=== PATIENT | male | born 1950 | race Caucasian/White ===

== ENCOUNTER 2016-10-11 09:08 | Inpatient (IN) | payer MEDICARE, MEDICAID ==
[~2016-10-11] VITALS: Ht 167.6 cm; Wt 70.3 kg
--- NOTE | 2016-10-11 09:19 | NUR ---
PT IS IN ROOM #2A. DR WELSH EVALUATED THE PT.
[2016-10-11] MEDS ORDERED: ASPIRIN PO (09:23)
[2016-10-11] MEDS ORDERED: FLUT16SP BNOSTRILS (09:23)
[2016-10-11] MEDS ORDERED: LORA10TA50 PO (09:23)
[2016-10-11] MEDS ORDERED: AMLO5TAB2 PO (09:23)
[2016-10-11] MEDS ORDERED: ALBU8HFA4 INH (09:23)
[2016-10-11] MEDS ORDERED: TRAM100T23 PO (09:23)
[2016-10-11] MEDS ORDERED: TAMS0.4C34 PO (09:23)
[2016-10-11] MEDS ORDERED: PANT40TA2 PO (09:23)
[2016-10-11] MEDS ORDERED: CHOL100043 PO (09:23)
[2016-10-11] MEDS ORDERED: ACET-2605 PO (09:23)
[2016-10-11] MEDS ORDERED: GEMF600T3 PO (09:23)
[2016-10-11] MEDS ORDERED: FERROUS SULFATE PO (09:23)
[2016-10-11] MEDS ORDERED: DOCU100T2 PO (09:23)
[2016-10-11] MEDS ORDERED: MELO-264 PO (09:23)
[2016-10-11] MEDS ORDERED: BENA10TA2 PO (09:23)
[2016-10-11] MEDS ORDERED: CYCL5TAB PO (09:23)
[2016-10-11] MEDS ORDERED: CALCIUM CARBONATE PO (09:23)
[2016-10-11 09:57] LABS: BASOPHILS # (AUTO) 0.1 K/uL (0.0-0.2); BASOPHILS % (AUTO) 1.4 % (0.0-2.0); EOSINOPHILS # (AUTO) 0.2 K/uL (0.0-0.7); EOSINOPHILS % (AUTO) 2.9 % (0.0-7.0); HEMATOCRIT 44.8 % (40.0-50.0); HEMOGLOBIN 14.4 g/dL (14.0-18.0); LYMPHOCYTES # (AUTO) 2.2 K/uL (0.8-4.8); LYMPHOCYTES % (AUTO) 33.9 % (20.5-51.5); MEAN CORPUSCULAR HEMOGLOBIN 28.9 uug (27.0-31.0); MEAN CORPUSCULAR HGB CONC 32 g/dL (32.0-37.0); MEAN CORPUSCULAR VOLUME 89.8 fL (82.0-92.0); MONOCYTES # (AUTO) 0.6 K/uL (0.1-1.30); MONOCYTES % (AUTO) 9.4 % (0.0-11.0); NEUTROPHILS # (AUTO) 3.3 K/uL (1.8-8.9); NEUTROPHILS % (AUTO) 52.4 % (38.5-71.5); PLATELET COUNT (AUTO) 189 K/uL (150-450); RED BLOOD CELL COUNT(AUTO) 4.99 MIL/uL (4.70-6.10); RED CELL DISTRIBUTION WIDTH 13.1 % (11.5-14.5); WHITE BLOOD COUNT (AUTO) 6.4 K/uL (4.0-11.2)
[2016-10-11 10:00] LABS: POTASSIUM 4.7 mmol/L (3.5-5.1)
[2016-10-11 10:02] LABS: CREATININE 2.1 mg/dL (0.6-1.3)
[2016-10-11 10:05] LABS: ALBUMIN 3.4 g/dL (3.4-5.0); BILIRUBIN,TOTAL 0.3 mg/dL (0.2-1.0); TOTAL PROTEIN, SERUM 6.9 g/dL (6.4-8.2)
[2016-10-11] MEDS ORDERED: PANTOPRAZOLE SODIUM 40 MG VIAL IV ONE (10:15)
[2016-10-11] MEDS ORDERED: diphenhydrAMINE 50 MG/1 ML VIAL IV ONE (10:15)
[2016-10-11] MEDS ORDERED: methylPREDNISolone SOD SUCC 125 MG/2 ML VIAL IV ONE (10:15)
[2016-10-11] MEDS ORDERED: PANTOPRAZOLE SODIUM 40 MG VIAL ONE (10:29)
[2016-10-11] MEDS ORDERED: methylPREDNISolone SOD SUCC 125 MG/2 ML VIAL ONE (10:29)
[2016-10-11] MEDS ORDERED: diphenhydrAMINE 50 MG/1 ML VIAL ONE (10:29)
[2016-10-11 11:14] LABS: *BILIRUBIN,URIN NEGATIVE (NEGATIVE); *BLOOD, URINE Trace-intact (NEGATIVE); *CLARITY,URINE CLEAR (CLEAR); *COLOR,URINE YELLOW (YELLOW); *KETONES,URINE NEGATIVE (NEGATIVE); *PROTEIN,URINE 1+ (NEGATIVE); *UROBILINOGEN,URINE 0.2 E.U./dl (NORMAL); LEUKOCYTE ESTERASE ,URINE NEGATIVE (NEGATIVE); NITRITE, URINE NEGATIVE (NEGATIVE); UGLUCOSE NEGATIVE (NEGATIVE)
[2016-10-11 11:32] LABS: BACTERIA,URINE FEW /HPF (NONE SEEN); RBC,URINE 0-3 /HPF (0-3); SQUAMOUS EPITHELIAL CELL,UR FEW /HPF (NONE SEEN); WBC,URINE 0-3 /HPF (0-3)
--- NOTE | 2016-10-11 12:51 | NUR ---
REPORT WAS GIVEN TO W[employer] B[employer]LE INSPECTOR. PT WAS TRANSFERED TO TELEMETRY ROOM #228.
[2016-10-11 13:19] LABS: CREATINE KINASE MB 3.1 ng/mL (0-5.0)
--- NOTE | 2016-10-11 13:32 | NUR ---
Patient arrived on unit.
--- NOTE | 2016-10-11 13:40 | NUR ---
On assessment patient is noted to wheezing in all lung [place]. Patient saturation 90% on room air. Placed patient on 2 liters nasal cannula. Patient blood pressure noted elevated. MD notified. Awaiting orders. Patient face noted swollen on the right side. Patient reports waking up in the middle of night feeling itchy and realizing his face was swollen. Patient is primarily farsi speaking but understands basic stateless. Patient IV site is patent and intact. No skin issues at this time. Patient is noted normal sinus rhythm on telemetry.
[2016-10-11 14:30] VITALS: BP 155/79
[2016-10-11] MEDS ORDERED: Medication Not On Formulary EA (Cyclobenzaprine Hcl 5 MG) PO SCH (16:30)
[2016-10-11] MEDS ORDERED: diphenhydrAMINE 50 MG/1 ML VIAL IV PRN (16:45)
[2016-10-11] MEDS ORDERED: CYCLOBENZAPRINE HCL 10 MG TABLET PO PRN (16:45)
[2016-10-11] MEDS ORDERED: ACETAMINOPHEN 325 MG TABLET PO PRN (16:45)
[2016-10-11] MEDS ORDERED: TRAMADOL HCL 50 MG TABLET PO PRN (16:45)
[2016-10-11] MEDS ORDERED: MORPHINE SULFATE 2 MG/1 ML DISP.SYRIN IV PRN (16:45)
[2016-10-11] MEDS ORDERED: ALBUTEROL SULFATE 2.5 MG/3 ML NEBU NEB PRN (16:45)
[2016-10-11] MEDS ORDERED: ONDANSETRON 4 MG/2 ML VIAL IV PRN (16:45)
[2016-10-11] MEDS ORDERED: Medication Not On Formulary EA (Docusate Sodium 100 MG) PO SCH (17:00)
[2016-10-11] MEDS: AMLODIPINE 5 MG TABLET PO SCH (17:20)
[2016-10-11 20:00] VITALS: BP 150/79
[2016-10-11] MEDS: DOCUSATE SODIUM 100 MG CAPSULE PO SCH (20:24)
[2016-10-11] MEDS: FAMOTIDINE. 20 MG/2 ML VIAL IV SCH (20:24)
[2016-10-11] MEDS: TAMSULOSIN HCL 0.4 MG CAP.SR.24H PO SCH (20:24)
[2016-10-12] VITALS: BP 131/68
[2016-10-12 04:00] VITALS: BP 144/73
[2016-10-12] MEDS: AMLODIPINE 5 MG TABLET PO SCH ×2 (04:50→18:04)
[2016-10-12] MEDS: IV 1/2NS 1000 ML 1,000 ML IV PRN (06:00)
--- NOTE | 2016-10-12 06:30 | NUR ---
END OF SHIFT NOTE: PT SLEPT INTERMITTENTLY. DENIES ANY PAIN. IN NO ACUTE SIGNS OF DISTRESS. AMBULATED IN THE HALLWAY LAST NIGHT. IVF STILL INFUSING. SAFETY MAINTAINED. CALL LIGHT WITHIN REACH.
[2016-10-12] MEDS ORDERED: PANTOPRAZOLE SODIUM 40 MG TABLET.DR PO SCH ×2 (07:00)
[2016-10-12 07:11] LABS: BASOPHILS % (AUTO) 0.3 % (0.0-2.0); HEMATOCRIT 42.5 % (40.0-50.0); HEMOGLOBIN 13.6 g/dL (14.0-18.0); LYMPHOCYTES # (AUTO) 0.8 K/uL (0.8-4.8); LYMPHOCYTES % (AUTO) 7.7 % (20.5-51.5); MEAN CORPUSCULAR HGB CONC 32 g/dL (32.0-37.0); MEAN CORPUSCULAR VOLUME 90.3 fL (82.0-92.0); MONOCYTES # (AUTO) 0.5 K/uL (0.1-1.30); MONOCYTES % (AUTO) 4.6 % (0.0-11.0); NEUTROPHILS # (AUTO) 8.7 K/uL (1.8-8.9); NEUTROPHILS % (AUTO) 87.4 % (38.5-71.5); PLATELET COUNT (AUTO) 196 K/uL (150-450)
[2016-10-12 07:27] LABS: BILIRUBIN,TOTAL 0.3 mg/dL (0.2-1.0); CALCIUM 8.4 mg/dL (8.5-10.1); MAGNESIUM 2.1 mg/dL (1.8-2.4); PHOSPHOROUS 3.9 mg/dL (2.5-4.9); POTASSIUM 4.8 mmol/L (3.5-5.1); TOTAL PROTEIN, SERUM 6.3 g/dL (6.4-8.2)
[2016-10-12 07:29] LABS: CREATININE 1.7 mg/dL (0.6-1.3)
[2016-10-12 07:44] LABS: THYROID STIMULATING HORMONE 0.147 mIU/mL (0.358-3.740)
[2016-10-12] MEDS: CHOLECALCIFEROL 1,000 UNIT TABLET PO SCH (08:51)
[2016-10-12] MEDS: FAMOTIDINE. 20 MG/2 ML VIAL IV SCH (08:55)
[2016-10-12] MEDS: FLUTICASONE PROP NASAL SPRAY 16 GM BOTTLE NS SCH (08:55)
[2016-10-12] MEDS: DOCUSATE SODIUM 100 MG CAPSULE PO SCH ×2 (09:00→20:39)
[2016-10-12] MEDS: FLUTICASONE/SALMETEROL 250/50 INHALER INH SCH ×2 (11:15→20:38)
[2016-10-12 11:32] VITALS: BP 132/73
[2016-10-12] MEDS: LEVOFLOXACIN 250MG /D5W 250 MG in PREMIXED 1 EACH IV SCH (13:50)
[2016-10-12 16:15] VITALS: BP 121/61
[2016-10-12 18:18] LABS: *BILIRUBIN,URIN NEGATIVE (NEGATIVE); *BLOOD, URINE NEGATIVE (NEGATIVE); *COLOR,URINE YELLOW (YELLOW); *KETONES,URINE NEGATIVE (NEGATIVE); *PROTEIN,URINE NEGATIVE (NEGATIVE); *UROBILINOGEN,URINE 0.2 E.U./dl (NORMAL); LEUKOCYTE ESTERASE ,URINE NEGATIVE (NEGATIVE); NITRITE, URINE NEGATIVE (NEGATIVE); UGLUCOSE NEGATIVE (NEGATIVE)
[2016-10-12 18:29] LABS: *CREATININE,URINE 46.4 mg/dL (30-125); *URINE TOTAL PROTEIN RANDOM 21.7 mg/dL (<150/24HR)
[2016-10-12 19:43] LABS: *CLARITY,URINE CLEAR (CLEAR); WBC,URINE 0-3 /HPF (0-3)
[2016-10-12] MEDS: TAMSULOSIN HCL 0.4 MG CAP.SR.24H PO SCH (20:39)
[2016-10-12] MEDS ORDERED: ATORVASTATIN 20 MG TABLET PO SCH (21:00)
[2016-10-12 21:49] VITALS: BP 123/75
[2016-10-13] MEDS: IV 1/2NS 1000 ML 1,000 ML IV PRN (03:06)
[2016-10-13] MEDS: AMLODIPINE 5 MG TABLET PO SCH (05:22)
[2016-10-13 05:46] VITALS: BP 121/64
--- NOTE | 2016-10-13 06:00 | NUR ---
patient slept well through the night, no acute change in condition,right facial,lip swelling resolved,denies sob,no itching,o2 sat wnl in room air.
[2016-10-13 07:23] LABS: BILIRUBIN,TOTAL 0.3 mg/dL (0.2-1.0); CALCIUM 8.6 mg/dL (8.5-10.1); MAGNESIUM 2.3 mg/dL (1.8-2.4); PHOSPHOROUS 2.6 mg/dL (2.5-4.9); POTASSIUM 4.2 mmol/L (3.5-5.1); TOTAL PROTEIN, SERUM 6.1 g/dL (6.4-8.2)
[2016-10-13 07:34] LABS: CREATININE 1.8 mg/dL (0.6-1.3)
[2016-10-13 07:52] LABS: BASOPHILS # (AUTO) 0.1 K/uL (0.0-0.2); EOSINOPHILS % (AUTO) 0.4 % (0.0-7.0); HEMATOCRIT 42.7 % (40.0-50.0); HEMOGLOBIN 13.6 g/dL (14.0-18.0); LYMPHOCYTES # (AUTO) 2.1 K/uL (0.8-4.8); LYMPHOCYTES % (AUTO) 25.8 % (20.5-51.5); MEAN CORPUSCULAR HEMOGLOBIN 28.8 uug (27.0-31.0); MEAN CORPUSCULAR HGB CONC 32 g/dL (32.0-37.0); MEAN CORPUSCULAR VOLUME 90.7 fL (82.0-92.0); MONOCYTES # (AUTO) 0.5 K/uL (0.1-1.30); MONOCYTES % (AUTO) 6.2 % (0.0-11.0); NEUTROPHILS # (AUTO) 5.3 K/uL (1.8-8.9); NEUTROPHILS % (AUTO) 66.6 % (38.5-71.5); PLATELET COUNT (AUTO) 193 K/uL (150-450); RED BLOOD CELL COUNT(AUTO) 4.71 MIL/uL (4.70-6.10)
[2016-10-13] MEDS: DOCUSATE SODIUM 100 MG CAPSULE PO SCH (08:05)
[2016-10-13] MEDS: CHOLECALCIFEROL 1,000 UNIT TABLET PO SCH (08:05)
[2016-10-13] MEDS: FLUTICASONE PROP NASAL SPRAY 16 GM BOTTLE NS SCH (08:07)
[2016-10-13] MEDS: FLUTICASONE/SALMETEROL 250/50 INHALER INH SCH (08:07)
[2016-10-13] MEDS ORDERED: FAMOTIDINE 20 MG TABLET PO SCH (09:00)
[2016-10-13 11:48] VITALS: BP 120/62
--- NOTE | 2016-10-13 12:00 | NUR ---
Discharge Plan: The patient's discharge plan is to return back home [[id number] [place] [address]] once medically cleared.
[2016-10-13] MEDS: LEVOFLOXACIN 250MG /D5W 250 MG in PREMIXED 1 EACH IV SCH (12:09)
[2016-10-13] MEDS ORDERED: TAMS-3 PO (13:20)
[2016-10-13] MEDS ORDERED: FLUT1DIS28 INH (13:20)
[2016-10-13] MEDS ORDERED: LEVO500T15 PO (13:20)
[2016-10-13] MEDS ORDERED: TIOT18CA3 INH (13:20)
[2016-10-13] MEDS ORDERED: ATOR20TA PO (13:20)
[2016-10-13] MEDS ORDERED: AMLO5TAB2 PO (13:20)
[2016-10-13] MEDS ORDERED: METH4TAB3 PO (13:21)
--- NOTE | 2016-10-13 14:05 | NUR ---
DISCHARGING PATIENT HOME IN A STABLE CONDITION. VSS. DENIED PAIN. FACE SWELLING GONE. DISCHARGE INSTRUCTIONS GIVEN. LIST OF BELONGINGS SIGNED AND ALL WAS TAKEN. IV REMOVED, PRESSURE APPLIED AND HEMOSTASIS ACHIEVED. PATIENT REFUSED PNA VACC STATED WILL GET ELSE WHERE. LEAVING VIA PRIVATE CAR ACCOMPANIED BY HIS .
[2016-10-16 06:06] LABS: A/G RATIO 1.4 (0.7-1.7); ALBUMIN 3.3 g/dL (2.9-4.4); ALPHA-1-GLOBULIN 0.2 g/dL (0.0-0.4); ALPHA-2-GLOBULIN 0.7 g/dL (0.4-1.0); BETA GLOBULIN 0.9 g/dL (0.7-1.3); GAMMA GLOBULIN 0.5 g/dL (0.4-1.8); GLOBULIN, TOTAL 2.3 g/dL (2.2-3.9); M-SPIKE Not Observed g/dL (Not Observed)
[2016-10-16 14:06] LABS: PTH, INTACT 49 pg/mL (15-65)
== END 2016-10-13 14:00 | disposition home or self-care (01) | DRG 915 ==
LOC: ER 09:08 → TELE 12:52 → MED 10-12 18:19
PROVIDERS: ADMIT Internal Medicine; ATTEND Internal Medicine
DX: T78.3XXA Angioneurotic edema, initial encounter (principal); N17.0 Acute kidney failure with tubular necrosis; J44.1 Chronic obstructive pulmonary disease with (acute) exacerbation; J44.0 Chronic obstructive pulmonary disease with (acute) lower respiratory infection; E78.5 Hyperlipidemia, unspecified; K21.9 Gastro-esophageal reflux disease without esophagitis; I12.9 Hypertensive chronic kidney disease with stage 1 through stage 4 chronic kidney disease, or unspecified chronic kidney disease; N18.9 Chronic kidney disease, unspecified; E05.90 Thyrotoxicosis, unspecified without thyrotoxic crisis or storm; E61.1 Iron deficiency; F17.210 Nicotine dependence, cigarettes, uncomplicated; N40.0 Benign prostatic hyperplasia without lower urinary tract symptoms; Z87.11 Personal history of peptic ulcer disease; T48.4X5A Adverse effect of expectorants, initial encounter; Z72.89 Other problems related to lifestyle; J20.9 Acute bronchitis, unspecified; J45.909 Unspecified asthma, uncomplicated; Y92.009 Unspecified place in unspecified non-institutional (private) residence as the place of occurrence of the external cause
CPT/HCPCS: 36415; 70030-TC; 70450; 71010; 76770; 83735; 83970; 84100; 84155; 84156; 84165; 84300; 84443; 85025; 85610; 93005; A4663; C9113; J1200; J1956; J2930; J3490; J3535; J7030